=== PATIENT | female | born 1950 | race Hispanic/Latino ===

== ENCOUNTER 2018-08-25 02:13 | Inpatient (IN) | payer MEDICARE ==
[~2018-08-25] VITALS: Ht 149.9 cm; Wt 85.7 kg
[2018-08-25] MEDS ORDERED: ONDANSETRON HCL 4 MG/2 ML VIAL ONE (02:46)
[2018-08-25] MEDS ORDERED: MORPHINE SULFATE 2 MG/ML 1ML SYG ONE (02:46)
[2018-08-25 03:37] LABS: BACTERIA,URINE Many /HPF (None Seen); WBC,URINE 26-50 /HPF (0-1)
[2018-08-25 03:46] LABS: APPEARANCE,URINE Cloudy (CLEAR); BILIRUBIN,URINE Negative (NEGATIVE); COLOR,URINE Dark Yellow (YELLOW); GLUCOSE, URINE (UA) Negative (NEGATIVE); KETONES,URINE Trace mg/dL (NEGATIVE); LEUKOCYTE ESTERASE ,URINE Large (NEGATIVE); NITRATE,URINE Negative (NEGATIVE); OCCULT BLOOD,URINE Negative (NEGATIVE); PROTEIN,URINE POS 2+ (NEGATIVE)
[2018-08-25 03:53] LABS: CREATININE 1.2 mg/dL (0.5-1.5); POTASSIUM 3.8 mmol/L (3.5-5.1)
[2018-08-25 03:55] LABS: BASOPHILS % (AUTO) 0.8 % (0.0-5.0); EOSINOPHILS % (AUTO) 1.3 % (0.0-8.0); LYMPHOCYTES % (AUTO) 11.4 % (21.0-51.0); MEAN CORPUSCULAR HEMOGLOBIN 30.1 pg (27.0-33.0); MEAN CORPUSCULAR HGB CONC 33.2 g/dL (32.0-36.0); MEAN CORPUSCULAR VOLUME 90.6 fL (79-99); MONOCYTES % (AUTO) 6.3 % (3.0-13.0); NEUTROPHILS % (AUTO) 80.2 % (40.0-77.0); PLATELET COUNT (AUTO) 253 K/uL (130-400); RED BLOOD CELL COUNT(AUTO) 4.52 MIL/uL (4.00-5.50); RED CELL DISTRIBUTION WIDTH 13.7 % (11.0-15.5)
[2018-08-25 03:58] LABS: ALBUMIN 3.7 g/dL (3.5-5.0); BILIRUBIN,TOTAL 0.5 mg/dL (0.2-1.0); TOTAL PROTEIN, SERUM 9.6 g/dL (6.0-8.3)
[2018-08-25] MEDS ORDERED: ONDANSETRON HCL 4 MG/2 ML VIAL IVP PRN (09:30)
[2018-08-25] MEDS ORDERED: NITROGLYCERIN 0.4 MG SL TAB SL PRN (09:30)
[2018-08-25] MEDS ORDERED: GLUCAGON 1MG KIT 1 MG ML IM PRN (09:30)
[2018-08-25] MEDS ORDERED: DEXTROSE 50%-WATER 50 ML DISP.SYRIN IV PRN (09:30)
[2018-08-25] MEDS ORDERED: ACETAMINOPHEN 325 MG TAB PO PRN ×2 (09:30)
[2018-08-25 09:37] VITALS: BP 110/65
[2018-08-25] MEDS: 1/2 NORMAL SALINE 1,000 ML IV SCH ×2 (10:02→22:50)
[2018-08-25 11:16] VITALS: BP 116/67
[2018-08-25] MEDS: INSULIN R PO SSI SQ SCH ×3 (11:30→21:00)
[2018-08-25 16:00] VITALS: BP 121/71
[2018-08-25] MEDS ORDERED: LISI1TAB9 PO (16:52)
[2018-08-25] MEDS ORDERED: LEVO75TA10 PO (16:52)
[2018-08-25] MEDS ORDERED: MELO-106 PO (16:52)
[2018-08-25] MEDS ORDERED: SIMV20TA6 PO (16:52)
[2018-08-25] MEDS ORDERED: SOLI5 PO (16:52)
[2018-08-25] MEDS ORDERED: SERT50TA12 PO (16:52)
[2018-08-25] MEDS ORDERED: METF-446 PO (16:52)
[2018-08-25] MEDS ORDERED: ESOM40CA54 PO (16:52)
[2018-08-25] MEDS ORDERED: ERGO500014 PO (16:52)
[2018-08-25] MEDS ORDERED: PROP60TA20 PO (16:52)
[2018-08-25] MEDS ORDERED: MONT10TA24 PO (16:52)
[2018-08-25 20:36] VITALS: BP 114/62
[2018-08-26] VITALS (7 sets, daily range): BP systolic 94–142; BP diastolic 53–66
[2018-08-26 04:39] LABS: CREATININE 0.9 mg/dL (0.5-1.5); POTASSIUM 3.9 mmol/L (3.5-5.1)
[2018-08-26 04:41] LABS: HEMATOCRIT 32.9 % (36-48); MEAN CORPUSCULAR HEMOGLOBIN 30.9 pg (27.0-33.0); MEAN CORPUSCULAR HGB CONC 34.2 g/dL (32.0-36.0); MEAN CORPUSCULAR VOLUME 90.4 fL (79-99); NUCLEATED RED BLOOD CELLS 0.1 % (0.0-0.19); PLATELET COUNT (AUTO) 204 K/uL (130-400); RED BLOOD CELL COUNT(AUTO) 3.64 MIL/uL (4.00-5.50); RED CELL DISTRIBUTION WIDTH 13.7 % (11.0-15.5); WHITE BLOOD COUNT (AUTO) 6.5 K/uL (4.8-10.8)
[2018-08-26 05:08] LABS: BAND NEUTROPHILS % (MANUAL) 3 % (0-2); BASOPHILS % (MANUAL) 1 % (0-2); EOSINOPHILS % (MANUAL) 7 % (1-6); LYMPHOCYTES % (MANUAL) 38 % (22-44); MAN.DIFF COMMENT-IMPRESSION MANUAL DIFFERENTIAL; MONOCYTES % (MANUAL) 2 % (2-9); PLATELET MORPHOLOGY COMMENT ADEQUATE; SEGMENTED NEUTROPHILS % 49 % (40-70)
[2018-08-26] MEDS: INSULIN R PO SSI SQ SCH ×3 (07:30→21:00)
[2018-08-26] MEDS: 1/2 NORMAL SALINE 1,000 ML IV SCH (08:07)
[2018-08-26] MEDS: ENOXAPARIN SODIUM 40 MG/0.4 ML SYRINGE SQ SCH (08:08)
[2018-08-27] MEDS: 1/2 NORMAL SALINE 1,000 ML IV SCH ×2 (01:30→14:50)
[2018-08-27 03:30] VITALS: BP 137/70
[2018-08-27 04:43] LABS: HEMATOCRIT 31.8 % (36-48); MEAN CORPUSCULAR HGB CONC 34.3 g/dL (32.0-36.0); MEAN CORPUSCULAR VOLUME 90.4 fL (79-99); PLATELET COUNT (AUTO) 204 K/uL (130-400); RED BLOOD CELL COUNT(AUTO) 3.52 MIL/uL (4.00-5.50); RED CELL DISTRIBUTION WIDTH 13.3 % (11.0-15.5)
[2018-08-27 05:02] LABS: ALBUMIN 2.8 g/dL (3.5-5.0); BILIRUBIN,TOTAL 0.5 mg/dL (0.2-1.0); CREATININE 0.8 mg/dL (0.5-1.5); POTASSIUM 3.3 mmol/L (3.5-5.1); TOTAL PROTEIN, SERUM 7.5 g/dL (6.0-8.3)
[2018-08-27] MEDS: INSULIN R PO SSI SQ SCH ×3 (06:10→16:28)
[2018-08-27] MEDS ORDERED: LEVOTHYROXINE 75 MCG TABLET ONE (06:13)
[2018-08-27] MEDS ORDERED: LEVOTHYROXINE 75 MCG TABLET PO SCH (07:30)
[2018-08-27 08:00] VITALS: BP 124/65
[2018-08-27] MEDS: ENOXAPARIN SODIUM 40 MG/0.4 ML SYRINGE SQ SCH (08:43)
[2018-08-27] MEDS ORDERED: **HM** VESICARE 5MG PO SCH (09:00)
[2018-08-27] MEDS ORDERED: MONTELUKAST SODIUM 10 MG TAB PO SCH (09:00)
[2018-08-27] MEDS ORDERED: SERTRALINE HCL 50 MG TABLET PO SCH (09:00)
[2018-08-27] MEDS ORDERED: PROPRANOLOL HCL 20 MG TAB PO SCH (09:00)
[2018-08-27] MEDS ORDERED: HYDROCHLOROTHIAZIDE 25 MG TABLET PO SCH (09:00)
[2018-08-27] MEDS ORDERED: LISINOPRIL 10 MG TABLET PO SCH (09:00)
[2018-08-27] MEDS ORDERED: PANTOPRAZOLE SODIUM 40 MG TABLET.DR PO SCH (09:00)
[2018-08-27] MEDS ORDERED: MELOXICAM 7.5 MG TABLET PO SCH (09:00)
[2018-08-27 11:00] VITALS: BP 116/57
[2018-08-27] MEDS: METFORMIN HCL 500 MG TABLET PO SCH ×2 (11:33→16:40)
[2018-08-27 16:00] VITALS: BP_SYST 125; BP_SYST 129; BP_DIAS 60; BP_DIAS 62
[2018-08-27] MEDS ORDERED: POTASSIUM CHLORIDE 20 MEQ ERTAB PO SCH (17:15)
[2018-08-27] MEDS ORDERED: SIMVASTATIN 20 MG TABLET PO SCH (21:00)
[2018-09-02] MEDS ORDERED: ERGOCALCIFEROL (VITAMIN D2) 50,000 UNIT CAPSULE PO SCH (09:00)
== END 2018-08-27 18:28 | disposition home or self-care (01) | DRG 392 ==
LOC: EDH 02:13 → 4BH 08:10 → OBSVTOIN 08:10
PROVIDERS: ADMIT Family Medicine; ATTEND Family Medicine
PROC: 3E0234Z Introduction of Serum, Toxoid and Vaccine into Muscle, Percutaneous Approach (ICD-10-PCS; principal; 2018-08-26)
DX: K52.9 Noninfective gastroenteritis and colitis, unspecified (principal); N17.9 Acute kidney failure, unspecified; E86.1 Hypovolemia; N18.9 Chronic kidney disease, unspecified; E11.22 Type 2 diabetes mellitus with diabetic chronic kidney disease; I12.9 Hypertensive chronic kidney disease with stage 1 through stage 4 chronic kidney disease, or unspecified chronic kidney disease; E03.9 Hypothyroidism, unspecified; E86.0 Dehydration; F32.9 Major depressive disorder, single episode, unspecified; M19.90 Unspecified osteoarthritis, unspecified site; E78.5 Hyperlipidemia, unspecified; K21.9 Gastro-esophageal reflux disease without esophagitis; E66.01 Morbid (severe) obesity due to excess calories; Z68.38 Body mass index [BMI] 38.0-38.9, adult; Z23 Encounter for immunization; Z83.3 Family history of diabetes mellitus; Z82.49 Family history of ischemic heart disease and other diseases of the circulatory system
CPT/HCPCS: 36415; 80048; 80053; 80339; 81001; 82150; 82948; 83690; 83883; 84156; 85025; 85027; 86334; 87077; 87088; 87186; 87324; G0008; J1650; J2405; Q2038

== ENCOUNTER → 2019-02-12 | Outpatient (CLI) | payer MEDICARE ==
[~2019-02-12] MED LIST: ERGO500014 PO; ESOM40CA54 PO; LEVO75TA10 PO; LISI1TAB9 PO; MELO-106 PO; METF-446 PO; MONT10TA24 PO; PROP60TA20 PO; SERT50TA12 PO; SIMV20TA6 PO; SOLI5 PO
== END | disposition home or self-care (01) ==
LOC: RAH 11:28
PROVIDERS: ATTEND Nurse Practitioner Family
DX: M51.37 Other intervertebral disc degeneration, lumbosacral region (principal); M25.552 Pain in left hip; M25.551 Pain in right hip
CPT/HCPCS: 72100; 73521

== ENCOUNTER 2024-07-10 14:10 | Emergency (ER) | payer OTHER, MEDICARE ==
[~2024-07-10] VITALS: Ht 147.3 cm; Wt 85.3 kg
[~2024-07-10 14:10] MED LIST changes: -ESOM40CA54 PO; +ESOM40CA66 PO; +LISI1TAB49 PO; -LISI1TAB9 PO; +MONT-39 PO; -MONT10TA24 PO; +SERT-439 PO; -SERT50TA12 PO; +SIMV-43 PO; -SIMV20TA6 PO
[2024-07-10] MEDS: dexaMETHasone SOD PHOSPHATE 4 MG/ML 1ML VIAL IM ONE (16:15)
[2024-07-10] MEDS: acetaMINOPHEN WITH coDEINE 1 TAB TAB PO ONE (16:15)
[2024-07-10 17:59] LABS: ADD UA MICROSCOPIC YES; APPEARANCE,URINE CLOUDY (CLEAR); BILIRUBIN,URINE NEGATIVE (NEGATIVE); COLOR,URINE DARK-YELLOW (YELLOW); GLUCOSE, URINE (UA) 50 mg/dL (NEGATIVE); KETONES,URINE NEGATIVE (NEGATIVE); LEUKOCYTE ESTERASE ,URINE 75 Leu/uL (NEGATIVE); NITRATE,URINE NEGATIVE (NEGATIVE); OCCULT BLOOD,URINE LARGE (NEGATIVE); PH,URINE 5.5 (5.0-8.0); PROTEIN,URINE 30 mg/dL (NEGATIVE); UROBILINOGEN,URINE 0.2 mg/dL (0.2-1.0)
[2024-07-10 18:02] LABS: BACTERIA,URINE MOD /HPF (None Seen); OTHER CASTS, URINE 1 /LPF (None Seen); SQUAMOUS EPITHELIAL CELL,UR RARE /HPF (0-2)
[2024-07-10] MEDS ORDERED: ACET-2079 PO (18:46)
[2024-07-10] MEDS ORDERED: METH4TAB3 PO (18:46)
[2024-07-10] MEDS ORDERED: AMOX1TAB16 PO (18:49)
[2024-07-10] MEDS: AMOX/CLAV 875/125MG TAB PO SCH (19:29)
[2024-07-10 19:31] VITALS: BP 143/65; PULSE 75; RESP 16; TEMP 98.3; O2SAT 98
== END 2024-07-10 19:39 | disposition home or self-care (01) ==
LOC: EDH 14:10
DX: M47.817 Spondylosis without myelopathy or radiculopathy, lumbosacral region (principal); M25.552 Pain in left hip; N30.00 Acute cystitis without hematuria; E11.9 Type 2 diabetes mellitus without complications; I10 Essential (primary) hypertension; E78.00 Pure hypercholesterolemia, unspecified; Z79.899 Other long term (current) drug therapy; Z90.710 Acquired absence of both cervix and uterus; Z90.49 Acquired absence of other specified parts of digestive tract; X58.XXXA Exposure to other specified factors, initial encounter; Y93.89 Activity, other specified; Y92.89 Other specified places as the place of occurrence of the external cause; Y99.8 Other external cause status
CPT/HCPCS: 99284; 87086 ×2; 87186; 81001; 73502; 72100; 96372; J1100

== ENCOUNTER 2024-10-31 15:38 | Emergency (ER) | payer OTHER, MEDICARE ==
[~2024-10-31] VITALS: Ht 147.3 cm; Wt 85.7 kg
[~2024-10-31 15:38] MED LIST changes: +ACET-2079 PO; +AMOX1TAB16 PO; +METH4TAB3 PO
--- NOTE | 2024-10-31 15:57 | EKG ---
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
[2024-10-31] MEDS: ORPHENADRINE 60MG/2ML IM ONE (16:12)
[2024-10-31 16:29] LABS: BASOPHILS # (AUTO) 0.05 K/uL (0.00-0.20); BASOPHILS % (AUTO) 0.4 % (0.0-5.0); EOSINOPHILS # (AUTO) 0.25 K/uL (0.00-0.70); EOSINOPHILS % (AUTO) 1.9 % (0.0-8.0); HEMATOCRIT 34.7 % (36-48); IMMATURE GRANULOCYTE ABSOLUTE 0.07 K/uL (0-1); LYMPHOCYTES # (AUTO) 1.8 K/uL (1.0-4.8); LYMPHOCYTES % (AUTO) 13.6 % (21.0-51.0); MEAN CORPUSCULAR HGB CONC 33.4 g/dL (32.0-36.0); MEAN CORPUSCULAR VOLUME 89.7 fL (79-99); MONOCYTES # (AUTO) 0.8 K/uL (0.1-1.0); MONOCYTES % (AUTO) 6.2 % (3.0-13.0); NEUTROPHILS # (AUTO) 10.1 K/uL (1.8-7.7); NEUTROPHILS % (AUTO) 77.4 % (40.0-77.0); PLATELET COUNT (AUTO) 267 K/uL (130-400); POTASSIUM 4.2 mmol/L (3.5-5.1); RED BLOOD CELL COUNT(AUTO) 3.87 MIL/uL (4.00-5.50); WHITE BLOOD COUNT (AUTO) 13.1 K/uL (4.8-10.8)
--- NOTE | 2024-10-31 16:32 | HMCIMG ---
CHEST 1VW HISTORY: Status post fall COMPARISON: 09/17/2017 FINDINGS: A frontal projection of the chest was obtained. Prominent interstitial markings are seen with possible superimposed infiltrates. The heart is borderline enlarged. Degenerative changes are seen. No evidence of aortic calcification is seen. IMPRESSION: 1. Prominent interstitial markings are seen with possible superimposed infiltrates.
[2024-10-31 16:37] LABS: MAGNESIUM 1.1 mg/dL (1.80-2.40)
--- NOTE | 2024-10-31 16:59 | HMCIMG ---
CT HEAD/BRAIN W/O CONTRAST HISTORY: Status post fall COMPARISON: None TECHNIQUE: Multiple sequential axial images of the head were obtained from the base of the skull through vertex. Patient was not given contrast through intravenous route. FINDINGS: The ventricles and extraventricular CSF spaces are dilated consistent with cerebral atrophy. Nonspecific white matter changes seen. There is no midline shift, mass effect or herniation. No acute intracranial bleed is seen. Visualized portion of the paranasal sinuses are grossly within normal limits. IMPRESSION: 1. No acute intracranial bleed is seen. 2. Atrophy with white matter changes. CT was performed with one or more following dose reduction techniques: automated exposure control, adjustment of the mA and kv according to patient's size, or use of a iterative reconstruction technique.
--- NOTE | 2024-10-31 17:02 | HMCIMG ---
CT CHEST W/O CONTRAST HISTORY: Status post fall COMPARISON: None TECHNIQUE: Multiple sequential axial images of the chest were obtained from the thoracic inlet through upper abdomen. Patient was not given contrast through intravenous route. FINDINGS: There are left posterior eighth, ninth, 10th and 11th rib fractures with mild displacement. There is no evidence of pulmonary nodule or parenchymal disease. No pleural effusion or pericardial effusion is seen. There is no evidence of pneumothorax. There are normal size mediastinal and hilar lymph nodes. The heart is borderline enlarged. Coronary arterial calcifications are seen. Degenerative changes of the thoracolumbar spine are present. There is no evidence of adrenal nodule. IMPRESSION: 1. There are left posterior eighth, ninth, 10th and 11th rib fractures with mild displacement. No pneumothorax is seen. CT was performed with one or more following dose reduction techniques: automated exposure control, adjustment of the mA and kv according to patient's size, or use of a iterative reconstruction technique.
[2024-10-31 17:17] LABS: B-TYPE NATRIURETIC PEPTIDE 106 pg/mL (0-100)
--- NOTE | 2024-10-31 17:24 | ERN ---
General Chief Complaint: Mechanical Fall Stated Complaint: FALL History of Present Illness Initial Comments Ms. Duran 73-year-old female with past medical history of hypertension was brought to the ED due to slip and fall in the bathroom less than an hour ago. Patient hit her left ribs and head, denies headache or loss of consciousness. She had 3-4 surgeries in her back and has had multiple falls in the past. She complains of severe pain in her left lower sternal area, denies cervical tenderness. She denies chest pain or numbness or tingling or dizziness. Allergies: Coded Allergies: No Known Drug Allergies (Verified Allergy, Unknown, 08/25/18) Home Meds Active Scripts Amoxicillin/Potassium Clav (Amox Tr-K Clv 875-125 mg Tab) 875 Mg-125 Mg Tablet, 1 EACH PO BID for 7 Days, #14 TAB 0 Refills Prov:FEROZ MENA PINMAKER 07/10/24 Acetaminophen with Codeine (Acetaminophen-Cod #3 Tablet) 300 Mg-30 Mg Tablet, 1 TAB PO Q4H PRN for Moderate to severe pain, #12 TAB 0 Refills Prov:FEROZ MENA NP 07/10/24 Methylprednisolone (Medrol) 4 Mg Tab.ds.pk, 4 MG PO AD, #1 UDCAP Prov:FEROZ MENA NP 07/10/24 Reported Medications Simvastatin (Simvastatin) 20 Mg Tablet, 20 MG PO HS, TAB 08/25/18 Propranolol HCl (Propranolol HCl) 60 Mg Tablet, 60 MG PO BID, TAB 08/25/18 Solifenacin Succinate (Vesicare) 5 Mg Tablet, 5 MG PO DAILY, TAB 08/25/18 Metformin HCl (Metformin HCl) 1,000 Mg Tablet, 1000 MG PO BIDLUNCHDINNER, TAB 08/25/18 Esomeprazole Magnesium (Esomeprazole Magnesium) 40 Mg Capsule.dr, 40 MG PO DAILY, CAP 08/25/18 Montelukast Sodium (Montelukast Sodium) 10 Mg Tablet, 10 MG PO DAILY, TAB 08/25/18 Levothyroxine Sodium (Levothyroxine Sodium) 75 Mcg Tablet, 75 MCG PO ACBKFST, TAB 08/25/18 Meloxicam (Meloxicam) 7.5 Mg Tablet, 7.5 MG PO DAILY, TAB 08/25/18 Sertraline HCl (Sertraline HCl) 50 Mg Tablet, 50 MG PO DAILY, TAB 08/25/18 Lisinopril/Hydrochlorothiazide (Lisinopril-Hctz 10-12.5 mg Tab) 1 Each Tablet, 1 EACH PO DAILY, TAB 08/25/18 Ergocalciferol (Vitamin D2) (Vitamin D2) 50,000 Unit Capsule, 45005 UNIT PO QWEEK, CAP 08/25/18 Past Medical History Past Medical History: Diabetes-Type II, High Cholesterol, Hypertension Past Surgical History: Hysterectomy, Cholecystectomy, Other Female( History) History: Not Applicable ROS Dictation Constitutional: No appetite loss, No fevers, chills , No night sweats, No weakness, fatigue Eye: No vision change, No redness, pain or discharge ENT: No hearing loss, ear pain or discharge, No nose bleeds, No sore throat, Neck: No swelling. pain or stiffness Respiratory: Mild shortness of breath, no cough, wheezing Cardiovascular: No chest pain,, palpitations, dyspnea, No edema Gastrointestinal: No abdominal pain, No nausea, vomiting, No diarrhea, constipation Genitourinary: No painful urination, No blood in urine, No urinary incontinence, No frequency or urgency Musculoskeletal: Left lower sternal pain ,no joint pain, swelling or stiffness Neurological: No numbness, tingling, No weakness, tremors or seizures Physical Exam Physical Exam Dictation General: Alert & Oriented, in mild distress. EENT: No conjunctival redness or discharge noted Tympanic membranes are clear, Normal hearing, Oral mucosa is moist, No pharyngeal erythema, No nasal discharge, No oral lesions. Neck: Non-tender, No jugular vein distention, No lymphadenopathy, No thy romegaly, Supple. Respiratory: Left lower sternal tenderness, Lungs are clear to auscultation, Breath sounds are equal, Cardiovascular: Normal rate, Normal rhythm, No murmur, Good pulses equal in all extremities, Normal peripheral perfusion, No edema. Gastrointestinal: Soft, Non-tender, Non-distended, Normal bowel sounds, No organomegaly, _. Musculoskeletal: Normal range of motion, Normal strength, No swelling, No deformity, Normal gait. Integumentary: Warm, Dry, [place], Intact, No pallor, No rash. Results Laboratory and Microbiology Lab and Micro Result Laboratory Tests Test 10/31/24 16:16 White Blood Count 13.1 K/uL (4.8-10.8) H Red Blood Count 3.87 MIL/uL (4.00-5.50) L Hemoglobin 11.6 g/dL (12.0-16.0) L Hematocrit 34.7 % (36-48) L Mean Corpuscular Volume 89.7 fL (79-99) Mean Corpuscular Hemoglobin 30.0 pg (27.0-33.0) Mean Corpuscular Hemoglobin Concent 33.4 g/dL (32.0-36.0) Red Cell Distribution Width 13.0 % (11.0-15.5) Platelet Count 267 K/uL (130-400) Mean Platelet Volume 10.1 fL (7.5-10.5) Immature Granulocyte % (Auto) 0.5 % (0-1) Neutrophils (%) (Auto) 77.4 % (40.0-77.0) H Lymphocytes (%) (Auto) 13.6 % (21.0-51.0) L Monocytes (%) (Auto) 6.2 % (3.0-13.0) Eosinophils (%) (Auto) 1.9 % (0.0-8.0) Basophils (%) (Auto) 0.4 % (0.0-5.0) Neutrophils # (Auto) 10.1 K/uL (1.8-7.7) H Lymphocytes # (Auto) 1.8 K/uL (1.0-4.8) Monocytes # (Auto) 0.8 K/uL (0.1-1.0) Eosinophils # (Auto) 0.25 K/uL (0.00-0.70) Basophils # (Auto) 0.05 K/uL (0.00-0.20) Absolute Immature Granulocyte (auto 0.07 K/uL (0-1) Nucleated Red Blood Cells 0.0 % (0.0-0.19) Sodium Level 141 mmol/L (136-145) Potassium Level 4.2 mmol/L (3.5-5.1) Chloride Level 104 mmol/L (101-111) Carbon Dioxide Level 27 mmol/L (21-32) Blood Urea Nitrogen 14 mg/dL (7-18) Creatinine 1.0 mg/dL (0.5-1.0) Glomerular Filtration Rate Calc 59 mL/min (>90) Random Glucose 246 mg/dL (70-105) H Total Calcium 8.9 mg/dL (8.5-10.1) Magnesium Level 1.10 mg/dL (1.80-2.40) L Total Creatine Kinase 30 U/L (21-232) Troponin I High Sensitivity 10.6 ng/L (4-50) B-Type Natriuretic Peptide 106 pg/mL (0-100) H EKG/XRAY/US/CT/MRI EKG Comment REASON: ORDERING PHYSICIAN: PILAR CORTÉS MD PROCEDURE: EKG - 12 LEAD EKG TRACING- TECHNICAL [facility] Test Date: 2024-10-31 Test Time: 15:52:57 Pat Name: JORGE DURAN Department: [facility] Patient ID: [id number] Room: Gender: Female [employer] Instructor: [id number] : 1950 Requested By: PILAR CORTÉS Order Number: [id number] Reading MD: Measurements Intervals [place] Rate: 69 P: 23 MA: 153 QRS: -5 QRSD: 82 T: 35 QT: 404 QTc: 433 Interpretive Statements Sinus rhythm X-RAY Comment REASON: RIB PAIN AFTER FALL ORDERING PHYSICIAN: PILAR CORTÉS MD PROCEDURE: CXR1VW - CHEST 1VW CHEST 1VW HISTORY: Status post fall COMPARISON: 09/17/2017 FINDINGS: A frontal projection of the chest was obtained. Prominent interstitial markings are seen with possible superimposed infiltrates. The heart is borderline enlarged. Degenerative changes are seen. No evidence of aortic calcification is seen. IMPRESSION: 1. Prominent interstitial markings are seen with possible superimposed infiltrates. CT Scan Comment REASON: fall ORDERING PHYSICIAN: PEPITO VELA MD PROCEDURE: CHEST WO - CT CHEST W/O CONTRAST CT CHEST W/O CONTRAST HISTORY: Status post fall COMPARISON: None TECHNIQUE: Multiple sequential axial images of the chest were obtained from the thoracic inlet through upper abdomen. Patient was not given contrast through intravenous route. FINDINGS: There are left posterior eighth, ninth, 10th and 11th rib fractures with mild displacement. There is no evidence of pulmonary nodule or parenchymal disease. No pleural effusion or pericardial effusion is seen. There is no evidence of pneumothorax. There are normal size mediastinal and hilar lymph nodes. The heart is borderline enlarged. Coronary arterial calcifications are seen. Degenerative changes of the thoracolumbar spine are present. There is no evidence of adrenal nodule. IMPRESSION: 1. There are left posterior eighth, ninth, 10th and 11th rib fractures with mild displacement. No pneumothorax is seen. CT was performed with one or more following dose reduction techniques: automated exposure control, adjustment of the mA and kv according to patient's size, or use of a iterative reconstruction technique. REASON: fall ORDERING PHYSICIAN: PEPITO VELA MD PROCEDURE: HEAD WO - CT HEAD/BRAIN W/O CONTRAST CT HEAD/BRAIN W/O CONTRAST HISTORY: Status post fall COMPARISON: None TECHNIQUE: Multiple sequential axial images of the head were obtained from the base of the skull through vertex. Patient was not given contrast through intravenous route. FINDINGS: The ventricles and extraventricular CSF spaces are dilated consistent with cerebral atrophy. Nonspecific white matter changes seen. There is no midline shift, mass effect or herniation. No acute intracranial bleed is seen. Visualized portion of the paranasal sinuses are grossly within normal limits. IMPRESSION: 1. No acute intracranial bleed is seen. 2. Atrophy with white matter changes. CT was performed with one or more following dose reduction techniques: automated exposure control, adjustment of the mA and kv according to patient's size, or use of a iterative reconstruction technique. MDM The differential diagnosis entertained at this time includes: Muscle sprain, Rib fracture, ACS, GERD A full comprehensive workup will be performed to identify the underlying problem. The patient will be monitored closely throughout the emergency department stay. The disposition will depend on the workup results and frequent re-evaluations MDM: Rationale: Tests considered and ordered secondary to shared decision making include: CBC, CMP, ECG and radiology Previous outside records reviewed: Old ER visits. Risk of complication and/or morbidity or mortality of patient management: None Medications-Per medication reconciliation Need for hospitalization: Patient does meet criteria for hospitalization. Need for emergency major/minor surgery: No There are no social concerns with this patient. Prescription drug management Prescriptions will include symptomatic care Patient's prior external medical records from other ER visits were reviewed by me as indicated. Prior testing and results from previous visits were reviewed. Prior tests were taken into account with medical decision making and resource utilization, independent historian/historians were used to obtain complete medical history. I independently interpreted the test that were performed, results were reviewed by me and considered findings on radiology if ordered. Medical management and examination interpretation discussions were had by me with other qualified healthcare professionals as indicated for the patient's care. ED Course Orders Procedure Category Date Status Time 12 Lead Ekg Tracing- EKG 10/31/24 Complete Technical 15:42 Chest 1vw RAD 10/31/24 Resulted 15:42 Orphenadrine Citrate PHA 10/31/24 Complete (Norflex) 16:00 Ct Chest W/O Contrast CT 10/31/24 Resulted 15:57 Ct Head/Brain W/O CT 10/31/24 Resulted Contrast 15:57 Cardiac Panel LAB 10/31/24 Complete 15:57 Creatine Kinase, Total LAB 10/31/24 Complete 15:57 Magnesium LAB 10/31/24 Complete 15:57 Cbc With Differential LAB 10/31/24 Complete 15:57 Basic Metabolic Panel LAB 10/31/24 Complete 15:57 B-Type Natriuretic LAB 10/31/24 Complete Peptide 15:57 Magnesium 2gm Premix PHA 10/31/24 In Process 50ml (Magnesium 2gm 17:00 Gabapentin 100 Mg Cap PHA 10/31/24 In Process (Neurontin 100 Mg 17:30 Cv Rt Incentive CPOE 10/31/24 Transmitted Spirometry 17:31 Respiratory RT 10/31/24 Transmitted Communication 17:59 Current Medications Medications (Trade) Dose Ordered Sig/[place] Route PRN Reason Start Time Stop Time Status Last Admin Dose Admin Gabapentin (NEURontin 100 mg CAP) 100 mg ONCE PO 10/31/24 17:30 11/30/24 17:29 10/31/24 17:47 Magnesium Sulfate 50 ml @ 0 mls/hr PROTOCOL PRN IV ONCE 10/31/24 17:00 11/30/24 16:59 10/31/24 17:32 Orphenadrine Citrate (Norflex) 60 mg ONCE ONCE IM 10/31/24 16:00 10/31/24 16:01 DC 10/31/24 16:12 Vital Signs Date Time Temp Pulse Resp B/P (MAP) Pulse Ox O2 Delivery O2 Flow Rate FiO2 10/31/24 18:14 98.2 75 18 185/89 96 Room Air* 0 21 10/31/24 15:43 98.2 72 16 205/91 98 Room Air* 0 21 10/31/24 15:43 98.2 72 16 205/91 98 Room Air 0 Remarkable labs are hypomagnesemia , will start her on magnesium protocol. Patient is at 1000 with incentive spirometry Patient is advised deep breathing with incentive spirometry at home and to follow up with ortho. DX & DISP Disposition: Discharge Departure Impression: Primary Impression: Rib fracture Additional Impression: Fall Critical Time: 30 minutes Condition: Stable Scripts Azithromycin (Azithromycin) 500 Mg Tablet 1 TAB PO DAILY for 5 Days, #5 TAB 0 Refills Prov: PEPITO VELA MD 10/31/24 Methocarbamol (Robaxin) 750 Mg Tab 1 TAB PO BID for 15 Days, #30 TAB 0 Refills Prov: PEPITO VELA MD 10/31/24 Gabapentin (Gabapentin) 100 Mg Capsule 100 MG PO BID for 15 Days, #30 CAP Prov: PEPITO VELA MD 10/31/24 Additional Instructions: Follow-up with PCP and Orthopedics in 1 week. Return to emergency room for any acute findings. Recommended to purchase and use proper footwear prevent trips and slips. Patient and the caregiver have been informed of all the diagnostic tests and the imaging conducted during the today's visit to the emergency room and has verbalized understanding of the results I have personally reviewed and interpreted all diagnostic exams performed here in the ER today as well as the vital signs documented by the nursing staff. The patient is now being discharged to home and should follow up with the primary care physician or the specialist as directed by the ER staff. Follow-up with primary care provider in 1 to 2 days. Take medications as directed here in the emergency room. Okay to continue home medications unless otherwise discussed during your visit in the emergency room today. Return to your nearest emergency room if symptoms worsen or if there is no improvement. Call 911 if you need immediate assistance. Take Tylenol or Motrin [id number] as needed and if no contraindications are present. Referrals: COURTNEY CARLISLE (PCP) ATTESTATION BY PHYSICIAN I have seen and examined the patient. I reviewed the documentation, medical decision making, and treatment plan as noted by the resident provider above. I agree with the findings and plan of care. Pilar Myers MD, NIHITHA MD Oct 31, 2024 17:24
[2024-10-31] MEDS: MAGNESIUM 2GM PREMIX 50ML 50 ML IV PRN (17:32)
[2024-10-31] MEDS: GABApentin 100 MG CAPSULE PO SCH (17:47)
[2024-10-31 18:14] VITALS: BP 185/89; TEMP 98.2; O2SAT 96
[2024-10-31] MEDS ORDERED: AZIT500T4 PO (18:32)
[2024-10-31] MEDS ORDERED: METH-662 PO (18:32)
[2024-10-31] MEDS ORDERED: GABA-529 PO (18:32)
[2024-10-31 18:39] VITALS: PULSE 91; RESP 18
== END 2024-10-31 19:00 | disposition home or self-care (01) ==
LOC: EDH 15:38
DX: S22.42XA Multiple fractures of ribs, left side, initial encounter for closed fracture (principal); R51.9 Headache, unspecified; E11.9 Type 2 diabetes mellitus without complications; E78.00 Pure hypercholesterolemia, unspecified; I10 Essential (primary) hypertension; Z79.1 Long term (current) use of non-steroidal anti-inflammatories (NSAID); Z79.899 Other long term (current) drug therapy; Z90.49 Acquired absence of other specified parts of digestive tract; Z90.710 Acquired absence of both cervix and uterus; W18.2XXA Fall in (into) shower or empty bathtub, initial encounter; Y93.89 Activity, other specified; Y92.89 Other specified places as the place of occurrence of the external cause; Y99.8 Other external cause status
CPT/HCPCS: 99285; 70450; 96374; 71045; 82550; 83735; 84484; 80048; 83880; 85025; 36415; 71250; 93005; 94640; 96372; J3475; J2360

== ENCOUNTER → 2025-02-12 | Outpatient (CLI) | payer OTHER, MEDICARE ==
[~2025-02-12] MED LIST changes: +AZIT500T4 PO; +GABA-529 PO; +METH-662 PO
--- NOTE | 2025-02-12 10:21 | HMCIMG ---
DEXA BONE DENSITY SURVEY HISTORY: Osteoporosis COMPARISON: None FINDINGS: Bone densitometry study was performed. Bone mineral density of the left forearm is 0.457 gram per centimeter square which corresponds to a T score of -2.3 and a Z score of 0.2. Bone mineral density of the left hip is 0.813 grams per centimeter square which corresponds to a T score of -1.1 and a Z score of 0.7. IMPRESSION: 1. Osteopenia of the left forearm and left hip.
== END | disposition home or self-care (01) ==
LOC: RAH 08:49
PROVIDERS: ATTEND Nurse Practitioner Family
DX: M81.0 Age-related osteoporosis without current pathological fracture (principal); M85.89 Other specified disorders of bone density and structure, multiple sites
CPT/HCPCS: 77080